=== PATIENT | female | born 1960 | race Caucasian/White ===

== ENCOUNTER 2019-05-08 13:30 | Inpatient (IN) | payer MEDICARE, MEDICAID ==
--- NOTE | 2019-05-08 14:09 | RAD ---
EXAM DESCRIPTION: Chest,2 Views CLINICAL HISTORY: sob 1 week COMPARISON: None TECHNIQUE: PA/lateral FINDINGS: Heart is large with large hilar thought to be large central pulmonary arteries consistent with pulmonary hypertension. Correlate with other studies. No pleural effusion or pneumothorax. Lungs are clear with no consolidating infiltrate. Lateral view shows intact sternum and spurring in the mid to lower T-spine. IMPRESSION: Large heart with large central pulmonary arteries. Electronically signed by: John Paul Jasso MD 05/08/2019 2:08 PM [facility]
[2019-05-08] MEDS ORDERED: predniSONE 20 MG TAB PO ONE (14:36)
[2019-05-08] MEDS ORDERED: ACETAMINOPHEN 325 MG TAB PO ONE ×3 (14:36→22:09)
[2019-05-08] MEDS ORDERED: diphenhydrAMINE HCL 25 MG CAP PO ONE (14:36)
[2019-05-08] MEDS ORDERED: MAGNESIUM SULFATE PREMIX 2GM 2 GM in PREMIX BAG 1 BAG IVPB ONE (15:10)
--- NOTE | 2019-05-08 15:23 | ED.PDOC ---
History of Present Illness - General Chief Complaint: Respiratory Problem Stated Complaint: Chronic SOB worsenign over the last 2 months Time Seen by Provider: 05/08/19 13:33 Source: patient Exam Limitations: no limitations - History of Present Illness Initial Comments: The patient is a 58-year-old female presenting to the emergency room secondary to 2 months of progressive shortness of breath. It is worse with activity. No chest pain. She did have a stomach ulcer many many years ago. No history of any GI bleeds since. No history of any melena or frankly bloody stools. No syncope though she says she has had a couple episodes of near syncope. She is actually 99% on room air here currently. Shortness of breath started very mild and got worse. No fever. No significant weight changes. She is not taking any blood thinners. She does smoke significantly. Timing/Duration: constant, getting worse, other - 2 months Severity: moderate Improving Factors: immobilization Worsening Factors: movement Associated Symptoms: malaise, shortness of breath, weakness Allergies/Adverse Reactions: Allergies Codeine Allergy (Verified 05/08/19 13:41) Review of Systems - Review of Systems Constitutional: States: malaise, weakness EENTM: States: no symptoms reported Respiratory: States: short of breath Cardiology: States: no symptoms reported Gastrointestinal/Abdominal: States: no symptoms reported Genitourinary: States: no symptoms reported Musculoskeletal: States: no symptoms reported Skin: States: no symptoms reported Neurological: States: no symptoms reported Endocrine: States: no symptoms reported All other Systems: No Change from Baseline Past Medical History (General) - Patient Medical History Hx Stroke: No Hx of COPD: No Hx Cardiac Disorders: No Hx Hypertension: Yes Hx Diabetes: No Surgical History: tonsillectomy, other - Vaccination History Hx Tetanus, Diphtheria Vaccination: No Hx Influenza Vaccination: No Hx Pneumococcal Vaccination: No - Social History Hx Tobacco Use: Yes Hx Alcohol Use: Yes Hx Substance Use: No Hx Substance Use Treatment: No Hx Depression: Yes - Female History Patient is a Female of Child Bearing Age (10 -59 yrs old): No Patient : No Family Medical History - Family History Mother Family History: No Known Physical Exam - Physical Exam General Appearance: Alert, No apparent distress - she is very pale Eye Exam: bilateral normal - pale Ears, Nose, Throat: hearing grossly normal, normal pharynx - pale Neck: non-tender, supple Respiratory: lungs clear, normal breath sounds, no respiratory distress, no accessory muscle use Cardiovascular/Chest: normal peripheral pulses, regular rate, rhythm, no edema Peripheral Pulses: radial,right: 2+, radial,left: 2+, dorsalis pedis,right: 2+, dorsalis pedis,left: 2+ Gastrointestinal/Abdominal: non tender, soft Rectal Exam: deferred Back Exam: no CVA tenderness, no vertebral tenderness Extremity: non-tender, normal inspection, no pedal edema, normal capillary refill Neurologic: backend developer II-XII nml as tested, alert, normal mood/affect, oriented x 3 Skin Exam: pallor Comments: Vital Signs - 24 hr 05/08/19 13:30 Temperature 97.6 F Pulse Rate [ 68 Monitor] Respiratory 22 Rate Blood Pressure 142/46 [L Brachial] O2 Sat by Pulse 100 Oximetry Progress - Progress Progress: 05/08/19 15:27 the patient is a 58-year-old female presenting to the emergency room secondary to a feeling of shortness of breath that has been progressive over the last 2 months. The patient does appear to be having a mild CHF exacerbation that is most likely due to profound anemia. Source of the anemia is not certain at this point. The patient will be transfused 2 units packed red blood cells and she will receive a dose of Lasix with her first unit. We will collect a stool for fecal occult blood. She is significantly iron deficient and will need to be started on an oral iron supplement in the very near future. CT scan of the abdomen and pelvis with IV contrast would also be recommended after the anemia is corrected to look for a source for the anemia. Again this does not appear to be an acute process. She is not having any pain. She will likely need to be set up with GI as an outpatient for scopes in the very near future. Admit for correction of anemia and therefore correction of the CHF. She does have flipped T waves on her EKGs but no chest pain. It would be worth repeating the EKGs after she is transfused. No elevation of heart enzymes. BNP is elevated along with the chest x-ray indicating the CHF. she is not hypoxic but I'm keeping her on 2 L of oxygen supplement to increase oxygen delivery in the face of low hemoglobin levels. 05/08/19 15:31 nasrin mariee [id number] - Results/Orders Results/Orders: chest x-ray shows some cardiomegaly and cephalization. EKG shows normal sinus rhythm and a proximally 62 bpm. She does have T-wave inversions in lateral leads. Normal R-wave progression. Normal axis. She also has a flipped T wave in aVF. Laboratory Tests 05/08/19 05/08/19 05/08/19 13:50 13:50 13:50 WBC 7.9 RBC 2.79 L Hgb 4.6 L* Hct 16.7 L MCV 60.0 L MCH 16.5 L MCHC 27.5 L RDW 19.6 H Plt Count 348 MPV 9.0 Absolute Neuts (auto) Not Reportable Absolute Lymphs (auto) Not Reportable Absolute Monos (auto) Not Reportable Absolute Eos (auto) Not Reportable Neutrophils % Not Reportable Neutrophils % (Manual) 69.0 Lymphocytes % Not Reportable Lymphocytes % (Manual) 24.0 Monocytes % Not Reportable Monocytes % (Manual) 6.0 Eosinophils % Not Reportable Basophils % Not Reportable Eosinophils 1.0 Hypochromia 3+ Platelet Estimate Normal Poikilocytosis 1+ Anisocytosis 3+ Microcytosis 2+ Ovalocytes 1+ Stomatocytes 1+ PT 10.9 INR 1.09 PTT (SP) 21.0 L D-Dimer, Quantitative 2.46 H* Sodium 139 Potassium 3.4 L Chloride 107 Carbon Dioxide 23 Anion Gap 12.4 BUN 12 Creatinine 0.81 BUN/Creatinine Ratio 14.8 Random Glucose 95 Serum Osmolality 277.1 Calcium 9.0 Magnesium 1.6 L Iron TIBC Iron Saturation Total Bilirubin 1.0 AST 17 ALT 9 L Alkaline Phosphatase 66 Creatine Kinase 27 CK-MB (CK-2) 1.2 CK-MB (CK-2) % Not Reportable Troponin I 0.03 B-Natriuretic Peptide 699.0 H* Serum Total Protein 7.1 Albumin 3.4 Globulin 3.7 H Albumin/Globulin Ratio 0.9 L TSH 3.46 Patient ABO/Rh Antibody Screen Crossmatch 05/08/19 05/08/19 14:00 14:30 WBC RBC Hgb Hct MCV MCH MCHC RDW Plt Count MPV Absolute Neuts (auto) Absolute Lymphs (auto) Absolute Monos (auto) Absolute Eos (auto) Neutrophils % Neutrophils % (Manual) Lymphocytes % Lymphocytes % (Manual) Monocytes % Monocytes % (Manual) Eosinophils % Basophils % Eosinophils Hypochromia Platelet Estimate Poikilocytosis Anisocytosis Microcytosis Ovalocytes Stomatocytes PT INR PTT (SP) D-Dimer, Quantitative Sodium Potassium Chloride Carbon Dioxide Anion Gap BUN Creatinine BUN/Creatinine Ratio Random Glucose Serum Osmolality Calcium Magnesium Iron 14 L TIBC 595.0 H Iron Saturation 2.30 L Total Bilirubin AST ALT Alkaline Phosphatase Creatine Kinase CK-MB (CK-2) CK-MB (CK-2) % Troponin I B-Natriuretic Peptide Serum Total Protein Albumin Globulin Albumin/Globulin Ratio TSH Patient ABO/Rh O POSITIVE Antibody Screen Negative Crossmatch See Detail Departure - Departure Clinical Impression: Symptomatic anemia Acute exacerbation of CHF (congestive heart failure) Qualifiers: Heart failure type: unspecified Qualified Code(s): I50.9 - Heart failure, unspecified Disposition: Admit Patient Departure Forms: ED Discharge - Pt. Copy, Patient Portal Self Enrollment Referrals: MELISSA ORELLANA [Primary Care Provider] - 1-2 Weeks
[2019-05-08] MEDS ORDERED: MAGNESIUM SULFATE PREMIX 2GM 50 ML IVPB ONE (15:44)
--- NOTE | 2019-05-08 16:22 | HP ---
SUPERVISING PHYSICIAN: Js Germain M.D. CHIEF COMPLAINT: Shortness of breath. HISTORY OF PRESENT ILLNESS: This is a 58 year-old female who came to the hospital with shortness of breath for the last 2 months or so which has progressively gotten worse. She states that she has also had some episodes of near syncope, although not actually passed out. In the Emergency Room he workup included a chest x-ray as well as some labs. She was shown to have a hemoglobin of 4.6. White count was normal. Platelet count was normal. She denied any melena or bright red blood in her stools. She does state that she had a gastric ulcer about 25 years ago and took antibiotics for that at that time. Her chest x-ray actually showed some cardiomegaly with some prominent pulmonary veins and no actual pulmonary vascular congestion. At time of examination patient is alert and oriented with no distress. PAST MEDICAL HISTORY: 1. Hypertension. 2. Anxiety. 3. Gastroesophageal reflux disease. PAST SURGICAL HISTORY: 1. Mouth surgery as a kid. 2. Tubal ligation. 3. Foot surgery times 2 on the left. 4. Tonsillectomy. 5. Colonoscopy around about the time she had the gastric ulcer but not once since. CURRENT MEDICATIONS: 1. Metoprolol. 2. Xanax. 3. Omeprazole. 4. Aspirin. ALLERGIES: CODEINE. FAMILY HISTORY: Mother had some kind of cancer which required her to get a total abdominal hysterectomy. Grandmother who had oat cell carcinoma. An aunt who had colorectal cancer. She does not know anything about her father's side of the family. SOCIAL HISTORY: The patient states she smokes 1 to 3 cigarettes a day. Occasionally drinks alcohol. Has smoked marijuana in the past but she said it has been about 20 years, but also smokes methamphetamines on a semi regular basis and it has been a couple of days since she has done that. REVIEW OF SYSTEMS: CONSTITUTIONAL: No fever or chills. No recent weight loss or weight gain. HEENT: No headaches, vision changes, ear pain, nasal congestion or throat pain. RESPIRATORY: Positive for some cough. Positive for shortness of breath. No pleuritic chest pain. CARDIOVASCULAR: No chest pain, palpitations or peripheral edema. GASTROINTESTINAL: No nausea, vomiting, diarrhea, constipation or abdominal pain. GENITOURINARY: No dysuria, frequency or flank pain. ENDOCRINE: No polydipsia, polyuria or polyphagia. No heat or cold intolerance. MUSCULOSKELETAL: No joint pain, joint swelling or muscle cramps. NEUROLOGIC: Positive for near syncope but no actual syncope. No seizures. No paresthesias. INTEGUMENT: No rashes, lesions or wounds. PHYSICAL EXAMINATION: VITAL SIGNS: Blood pressure 157/82, heart rate 65, respiratory rate 18, temperature 98.2, oxygen saturation 99%. GENERAL: Ms. Roberts is a 58 year-old female who is in no active distress currently. CHEST: Lungs are clear to auscultation bilaterally. CARDIOVASCULAR: Regular rate and rhythm. Normal S1 and S2. ABDOMEN: Soft. Positive bowel sounds. No tenderness to palpation. GENITOURINARY: Deferred. EXTREMITIES: Lower extremities have no edema, 2+ pulses. Capillary refill is less than 2 seconds. NEUROLOGIC: The patient is alert and oriented. LABORATORY: Labs and films as discussed in history of present illness. ASSESSMENT: 1. Symptomatic anemia. 2. Hypertension. 3. Anxiety. 4. Cardiomegaly with elevated BNP indicative of possible congestive heart failure. 5. Methamphetamine abuse. 6. Nicotine dependency. PLAN: At this time the patient will be admitted to the hospital and transfused. This appears to be a chronic anemia as her symptoms have been going on for the past 2 months or so and she has not had any complaints of bleeding. Will place her on a proton pump inhibitor and hold off on chemical deep venous thrombosis prophylaxis. I am going to transfuse 2 units of blood and give some Lasix with each unit. She will definitely need a colonoscopy and/or esophagogastroduodenoscopy and gastrointestinal consultation likely as an outpatient. Will recheck her hemoglobin in the morning to ensure that her hemoglobin has improved with the transfusion. She may additionally need some blood given her hemoglobin is 4.6. I am going to continue her aspirin given the anemia and history of gastric ulcer. I will resume her home medications once they are verified in the computer. [id number]
[2019-05-08] MEDS ORDERED: SODIUM CHLORIDE 0.9% (FLUSH) 10 ML SYG IV PRN (17:47)
[2019-05-08] MEDS ORDERED: FUROSEMIDE INJ 20 MG/2 ML VIAL IV ONE ×2 (18:00→22:00)
[2019-05-08] MEDS ORDERED: SODIUM CHLORIDE 0.9% 500ML 500 ML ONE (18:00)
[2019-05-08] MEDS ORDERED: PANTOPRAZOLE SODIUM IV 40 MG VIAL IV SCH (18:00)
[2019-05-08] MEDS ORDERED: IV SET AND CAP CHANGE INJ INJ SCH (18:00)
[2019-05-08] MEDS ORDERED: diphenhydrAMINE HCL 50 MG/ML VIAL ONE ×2 (18:02→22:11)
[2019-05-08] MEDS ORDERED: ACETAMINOPHEN 325 MG TAB ONE ×2 (18:02→22:11)
[2019-05-08] MEDS ORDERED: FUROSEMIDE INJ 20 MG/2 ML VIAL ONE ×2 (18:02→19:25)
[2019-05-08] MEDS ORDERED: diphenhydrAMINE HCL 50 MG/ML VIAL IV ONE ×2 (18:15→22:10)
[2019-05-08] MEDS ORDERED: PANTOPRAZOLE SODIUM IV 40 MG VIAL ONE (18:23)
[2019-05-08] MEDS ORDERED: ALPRAZolam 0.5 MG TAB PO ONE (22:56)
[2019-05-08] MEDS ORDERED: ALPRAZolam 0.5 MG TAB ONE (22:58)
[2019-05-08 23:37] VITALS: BP 157/75; TEMP 99.7; O2SAT 98
--- NOTE | 2019-05-09 20:08 | DS ---
SUPERVISING PHYSICIAN: Js Germain M.D. ADMISSION DIAGNOSIS: 1. Symptomatic anemia. 2. Hypertension. 3. Anxiety. 4. Cardiomegaly with elevated BNP indicative of possible congestive heart failure. 5. Methamphetamine abuse. 6. Nicotine dependency. DISCHARGE DIAGNOSIS: 1. Symptomatic anemia. 2. Hypertension. 3. Anxiety. 4. Cardiomegaly with elevated BNP indicative of possible congestive heart failure. 5. Methamphetamine abuse. 6. Nicotine dependency. 7. Transfusion reaction. HOSPITAL COURSE: This is a 58 year-old female who came to the hospital with a 2 month history of shortness of breath that had progressively gotten worse. She had also had some near syncope episodes but not actually passed out. In the Emergency Room, her workup included chest x-ray as well as some labs. Hemoglobin was found to be 4.6. Due to the chronic nature of the anemia she was admitted for blood transfusion. She received 1 unit of blood without any difficulties but on the administration of the second unit towards the beginning of the transfusion she started to spike a fever of 103. She was tachypneic but not necessarily in distress. She did not have any hives or show any other anaphylactic signs. The transfusion was stopped and Benadryl was given as well as Tylenol. At this point the patient would require more blood transfusion. I did go ahead and check an H&H after the unit had been given and her hemoglobin was 6.1. I called [facility] for transfer as I felt like the patient would need consultation with a centrifuge separator operator for further blood transfusion. The patient was accepted by Dr. Cox. The patient's temperature actually dropped to 100.6 within about 10 minutes of stopping the transfusion as well. Vital signs were 157/68, heart rate 97, respiratory rate 24, temperature 100.6, oxygen saturation 94% on 2 liters. The patient is being transferred via ambulance. [id number]
== END 2019-05-08 23:30 | disposition short-term general hospital (02) | DRG 812 ==
LOC: ER 13:30 → MS 16:20 → OBSVTOIN 16:20
PROVIDERS: ADMIT Nurse Practitioner; ATTEND Nurse Practitioner
DX: D64.9 Anemia, unspecified (principal); I11.0 Hypertensive heart disease with heart failure; F41.9 Anxiety disorder, unspecified; I50.9 Heart failure, unspecified; F17.210 Nicotine dependence, cigarettes, uncomplicated; T80.89XA Other complications following infusion, transfusion and therapeutic injection, initial encounter; R50.9 Fever, unspecified; Y92.230 Patient room in hospital as the place of occurrence of the external cause; F15.10 Other stimulant abuse, uncomplicated; Z87.11 Personal history of peptic ulcer disease; Z79.82 Long term (current) use of aspirin; Z88.5 Allergy status to narcotic agent; Z79.899 Other long term (current) drug therapy; K21.9 Gastro-esophageal reflux disease without esophagitis